=== PATIENT | female | born 2000 | race Caucasian/White ===

== ENCOUNTER 2022-03-07 17:03 | Emergency (ER) | payer OTHER, SELFPAY ==
[2022-03-07 17:05] VITALS: BP 128/74; PULSE 84; RESP 16; TEMP 36.6; O2SAT 100
--- NOTE | 2022-03-07 20:08 | ED.BACK ---
HPI - Back Pain/Injury General Chief Complaint: Back Pain/Injury Stated Complaint: back pain Time Seen by Provider: 03/07/22 18:54 History of Present Illness HPI Narrative: Patient states that last night she was bending down while at work, felt something pop in her left lower back, and since then has had severe pain that radiates from the left lower back down her left leg, never had symptoms like this before, on focal numbness or weakness just pain that makes it hard for her to walk. She took some Aleve and Tylenol at home with only minimal improvement MD elicited complaint: back pain Similar Symptoms Previously: No Quality: sharp Location: left lower back Radiation: left leg below the knee Exacerbating factors: movement Relieving factors: immobilization Context: bending Associated symptoms: denies other symptoms Treatments prior to arrival: NSAIDS and acetaminophen Related Data Home Medications Medication Instructions Recorded Confirmed lisdexamfetamine [Vyvanse] 40 mg PO DAILY 03/07/22 03/07/22 Allergies Allergy/AdvReac Type Severity Reaction Status Date / Time No Known Allergies Allergy Verified 03/07/22 17:05 Review of Systems Review of Systems: All systems reviewed & are unremarkable except as noted in HPI and below [facility] Family History Family History (Updated 03/07/22 @ 20:10 by Roselyn Vu MD) Other DJD (degenerative joint disease) Exam Narrative: EXAMINATION OF ORGAN SYSTEMS/BODY AREAS: Constitutional: Vital signs per nursing GENERAL:[No acute distress, non-toxic appearing.] HEAD: Normal with no signs of head trauma. EYES: EOMI, conjunctiva normal ENT: Hearing grossly intact LUNGS: Nonlabored breathing. HEART: [Regular rate and rhythm] ABD: Soft], [nontender to palpation EXT: Elicitation of pain that goes down left leg with straight leg raise bilateral legs SKIN: No rashes or lesions. NEURO: Alert and oriented x 3. No gross focal sensory or strength deficits. Good strength with ankle, knee, hip flexion/extension. PSYCH: Normal affect Course Course Emergency Course: 21-year-old female with no medical problems presents with pain going down her left lower leg after bending last night, vital signs stable. Normal motor and sensory exam. Patient able to ambulate. No evidence of acute cord compression, osteomyelitis/discitis or cauda equina without saddle anesthesia, urinary retention/incontinence, numbness/tingling in lower extremities, fever, history of IV drug use, cancer or immunosuppression. Doubt AAA or aortic dissection without severe pain/discomfort or any neurovascular deficits.? At this time, I do not believe the patient requires imaging studies. [I discussed management of acute back pain in detail, explaining the need to remain active and the goals of pain control.] Patient is given return precautions and instructed to come back at any point in time for worsening pain, fevers, weakness, difficulty walking, urinary or fecal incontinence. Patient expressed understanding of instructions. DISPOSITION: Discharged home in stable condition. IMPRESSION: Acute back pain, likely herniated disc/sciatica Vital Signs Vital signs: Vital Signs Temperature 97.9 F 03/07/22 17:05 Pulse Rate 84 03/07/22 17:05 Respiratory Rate 16 03/07/22 17:05 Blood Pressure 128/74 03/07/22 17:05 Pulse Oximetry 100 03/07/22 17:05 Temperature 97.9 F 03/07/22 17:05 Pulse Rate 84 03/07/22 17:05 Respiratory Rate 16 03/07/22 17:05 Blood Pressure 128/74 03/07/22 17:05 Pulse Oximetry 100 03/07/22 17:05 Discharge Plan Discharge Clinical Impression: Strain of lumbar region Qualifiers: Encounter type: initial encounter Qualified Code(s): S39.012A - Strain of muscle, fascia and tendon of lower back, initial encounter Sciatica Qualifiers: Laterality: left Qualified Code(s): M54.32 - Sciatica, left side Patient Disposition: Home, Self-Care Condition: Stable Instructions:
== END 2022-03-07 20:50 | disposition home or self-care (01) ==
PROVIDERS: Emergency Provider Emergency Medicine
DX: S39.012A Strain of muscle, fascia and tendon of lower back, initial encounter (principal); M54.32 Sciatica, left side; X58.XXXA Exposure to other specified factors, initial encounter
CPT/HCPCS: 99281

== ENCOUNTER 2023-12-14 22:43 | Emergency (ER) | payer OTHER, SELFPAY ==
[2023-12-14 22:45] VITALS: BP 131/71; PULSE 85; RESP 14; TEMP 36.9; O2SAT 100
--- NOTE | 2023-12-14 23:18 | ED.GENADULT ---
[facility] - General Adult General Chief complaint: Abdominal Pain Stated complaint: abdominal pain Time Seen by Provider: 12/14/23 23:10 Source: patient Mode of arrival: ambulatory Limitations: no limitations History of Present Illness HPI narrative: This is a 23-year-old female who presents to the ED with chief complaint of diarrhea x5 days. 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 Reports mainly consists of water and appears mucousy at times. Also reports lower abdominal cramping. Endorses chills and subjective fevers. Endorses nausea but no vomiting. Denies urinary symptoms other than decreased urinary output. Reports she has been able to use small amounts and drink small amounts. Denies GI bleeding symptoms. Denies syncope. Related Data Home Medications Medication Instructions Recorded Confirmed lisdexamfetamine 40 mg capsule 40 mg PO DAILY 03/07/22 03/07/22 (Vyvanse) Allergies Allergy/AdvReac Type Severity Reaction Status Date / Time No Known Allergies Allergy Verified 03/07/22 17:05 Review of Systems Review of Systems: All systems as dictated in [facility] Family History Family History (Updated 03/07/22 @ 20:10 by Roselyn Vu MD) Other DJD (degenerative joint disease) Exam Narrative: GENERAL: Well-appearing, well-nourished, and in no acute distress. HEAD: Normocephalic, atraumatic. EYES: PERRLA and EOMI. ENT: Nares clear, no rhinorrhea or epistaxis. Mucous membranes moist. Oropharynx without tonsillar hypertrophy exudate or other lesions. NECK: Supple. No adenopathy or masses. CHEST: No respiratory distress. Clear to auscultation. No wheezes rales or rhonchi HEART: Regular rate and rhythm. No murmur heard. Normal peripheral pulses. ABDOMEN: Soft, nontender, nondistended, normal active bowel sounds. MSK: Normal range of motion. No edema. SKIN: Warm, dry, no rash. NEURO: Alert and oriented x3. No focal deficits. PSYCH: Normal mood and affect. Course Vital Signs Vital signs: Vital Signs Temperature 98.4 F 12/14/23 22:45 Pulse Rate 85 12/14/23 22:45 Respiratory Rate 14 12/14/23 22:45 Blood Pressure 131/71 12/14/23 22:45 Pulse Oximetry 100 12/14/23 22:45 Oxygen Delivery Room Air 12/14/23 22:45 Temperature 98.4 F 12/14/23 22:45 Pulse Rate 79 12/15/23 00:44 Respiratory Rate 15 12/15/23 00:44 Blood Pressure 115/69 12/15/23 00:44 Pulse Oximetry 100 12/15/23 00:44 Oxygen Delivery Room Air 12/14/23 22:45 Medical Decision Making MDM Narrative Medical decision making narrative: This is a 23-year-old female who presents to the ED for chief complaint of diarrhea and lower abdominal cramping for the past 5 days. Vitals are normal. Afebrile. Exam shows no abdominal tenderness or rigidity. Lab work is overall normal. Urinalysis shows evidence of dehydration but no overt UTI. Urine culture pending. She was given 2 L of fluids, Zofran and Bentyl here with mild improvement. Still having quite a bit of lower abdominal cramping so morphine was given. Patient feels much better after this and feels ready to go home. Presentation consistent with gastroenteritis. Low concern for C diff given normal white count, afebrile. She was unable to give us a stool sample here. Pt will be discharged in stable condition. Return precautions given and supportive measures discussed. Pt is understanding and agreeable with plan for discharge and follow-up with PCP. Vital Signs Vital Signs: Vital Signs Temperature 98.4 F 12/14/23 22:45 Pulse Rate 85 12/14/23 22:45 Respiratory Rate 14 12/14/23 22:45 Blood Pressure 131/71 12/14/23 22:45 Pulse Oximetry 100 12/14/23 22:45 Oxygen Delivery Room Air 12/14/23 22:45 Temperature 98.4 F 12/14/23 22:45 Pulse Rate 79 12/15/23 00:44 Respiratory Rate 15 12/15/23 00:44 Blood Pressure 115/69 12/15/23 00:44 Pulse Oxi
[2023-12-14 23:25] LABS: Basophils Percent Auto 0.5 % (0.2-1.2); Eosinophils Absolute Auto 0.2 K/mm3 (0-0.3); Hematocrit 42.3 % (37.0-47.0); Hemoglobin 14.9 g/dL (12.0-15.0); Immature Granulocyte Absolute 0.02 K/mm3 (0.00-0.031); Immature Granulocyte Percent A 0.3 % (0-0.5); Lymphocytes Absolute Auto 1.52 K/mm3 (0.9-3.2); Lymphocytes Percent Auto 19.9 % (18.3-44.2); Mean Corpuscular HGB Conc 35.2 g/dl (32-36); Mean Corpuscular Hemoglobin 30.8 pg (26-34); Mean Corpuscular Volume 87.6 fl (80-100); Mean Platelet Volume 9.1 fl (7.4-10.4); Monocytes Absolute Auto 0.8 K/mm3 (0.1-0.6); Monocytes Percent Auto 10.6 % (2.6-8.5); Neutrophils Absolute Auto 5.1 K/mm3 (1.3-6.7); Neutrophils Percent Auto 66.7 % (45.5-73.1); Platelet Count Result 278 k/mm3 (150-375); Red Blood Count 4.83 M/mm3 (4.2-5.4); Red Cell Distribution Width 11.5 % (11.5-14.5); White Blood Count 7.6 K/mm3 (4.5-10.0)
[2023-12-14 23:31] LABS: Appearance Urine Turbid (Clear); Bacteria Urine None Seen /hpf; Bilirubin Urine Negative (Negative); Blood Urine Negative (Negative); Color Urine Yellow (Yellow); Glucose Urine UA Negative (Negative); Ketones Urine 2+ mg/dL (Negative); Leukocyte Esterase Ur Trace LEU/UL (Negative); Nitrate Urine Negative (Negative); Non Pathogenic Casts 0-2; Protein Urine Negative (Negative); RBC Urine 0-2 /hpf (0-2); Specific Grav Ur 1.028 (1.001-1.035); Squamous Epithelial Cell Urine Occasional /hpf (Few)
[2023-12-14 23:33] LABS: Add Urine Microscopic? YES
[2023-12-14] MEDS: SODIUM CHLORIDE 0.9% IV 1,000 ML 999 ML IV CONT ×2 (23:40→23:58)
[2023-12-14 23:44] LABS: Alanine Aminotransferase 53 U/L (6-35); Albumin Level 4.7 g/dL (3.5-5.1); Alkaline Phosphatase 70 U/L (38-126); Anion Gap 8 mmol/L (8-16); Aspartate Amino Transferase 60 U/L (14-36); Bilirubin,Total 0.8 mg/dL (0.2-1.3); Blood Urea Nitrogen 10 mg/dL (7-17); Calcium 9.7 mg/dL (8.4-10.2); Carbon Dioxide 25 mmol/L (22-30); Chloride 104 mmol/L (98-107); Estimated CRCL calculation 153 ml/min; Estimated Glomerular Filt Rate > 60; Glucose 94 mg/dL (65-110); Lipase 80 U/L (23-300); Potassium 3.8 mmol/L (3.4-5.0); Sodium 137 mmol/L (137-145)
[2023-12-15] MEDS: DICYCLOMINE HCL INJ 20 MG/2 ML VIAL IM (00:34)
[2023-12-15] MEDS: ONDANSETRON INJ 4 MG/2 ML VIAL IV PUSH (00:34)
[2023-12-15 00:44] VITALS: BP 115/69; PULSE 79; RESP 15; O2SAT 100
[2023-12-15] MEDS: MORPHINE SULFATE (*CRX) 4 MG/ML INJ IV PUSH (01:57)
[2023-12-15 02:52] VITALS: BP 118/61; PULSE 68; RESP 15; O2SAT 98
== END 2023-12-15 02:53 | disposition home or self-care (01) ==
PROVIDERS: Emergency Medicine; Emergency Provider Physician Assistant
DX: K52.9 Noninfective gastroenteritis and colitis, unspecified (principal)
CPT/HCPCS: 36415; 80053; 81001; 81025; 83690; 85025; 87086; 96361; 96372; 96374; 96375; 99284; J0500; J2270; J2405; J7030